=== PATIENT | male | born 1960 | race Caucasian/White ===

== ENCOUNTER → 2019-12-04 11:05 | Outpatient (BNVA) | payer BC, SELFPAY | PROVIDERS: Family Provider Nurse Practitioner; Visit Provider Nurse Practitioner Family | DX: E78.5 Hyperlipidemia, unspecified (principal); J30.89 Other allergic rhinitis; F41.9 Anxiety disorder, unspecified; N52.9 Male erectile dysfunction, unspecified; K21.9 Gastro-esophageal reflux disease without esophagitis; M51.36 Other intervertebral disc degeneration, lumbar region; Z12.5 Encounter for screening for malignant neoplasm of prostate | CPT/HCPCS: 80053; 80061; 84443; 85025; G0103 ==

== ENCOUNTER → 2020-05-12 12:41 | Outpatient (BNVA) | payer BC, SELFPAY | PROVIDERS: Family Provider Nurse Practitioner; Visit Provider Nurse Practitioner | DX: Z12.5 Encounter for screening for malignant neoplasm of prostate (principal) | CPT/HCPCS: G0103 ==

== ENCOUNTER 2022-02-08 11:50 | Emergency (ER) | payer OTHER, SELFPAY ==
[2022-02-08 11:54] VITALS: BP 124/80; PULSE 109; RESP 18; TEMP 37.1; O2SAT 97
--- NOTE | 2022-02-08 12:59 | ECG_ITS ---
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 Measurements Intervals [place] Rate: 73 P: 48 IA: 140 QRS: 65 QRSD: 80 T: 57 QT: 363 QTc: 401 Interpretive Statements SINUS RHYTHM No previous ECG available for comparison Electronically Signed On 02-08-2022 22:15:16 CDT by Beth Tello M.D. [id number]
--- NOTE | 2022-02-08 12:59 | XRR_ITS ---
PROCEDURE INFORMATION: Exam: XR Chest Exam date and time: 02/08/2022 1:10 PM Age: 61 years old Clinical indication: Other: Syncope TECHNIQUE: Imaging protocol: Radiologic exam of the chest. Views: 1 view. COMPARISON: CT neck w con* [id number] 06/08/2015 8:39 AM FINDINGS: Lungs: Unremarkable. No consolidation. Pleural spaces: Unremarkable. No pleural effusion. No pneumothorax. Heart/Mediastinum: Stable cardiomediastinal silhouette. Bones/joints: Degenerative changes of the spine seen. XR/XR chest 1V portable [id number] IMPRESSION: No acute findings.
--- NOTE | 2022-02-08 12:59 | W.ED.GENADLT ---
HPI - General Adult General: Chief complaint: General Medical Stated complaint: AMS Time Seen by Provider: 02/08/22 12:30 Source: patient and family () Mode of arrival: EMS Limitations: no limitations History of Present Illness: Patient is a nice 61-year-old male who presents to ED today along with his for evaluation following a passing out episode. Patient tells me he drove himself to [employer] and had ordered food and was awaiting his order to be delivered. He states the next thing he knows EMS was at his window/door trying to arouse him.He reportedly was very confused when he woke up but states this quickly subsided. Patient upon arrival to the emergency department is alert and oriented x4. His is currently accompanying him and states he is at his mental baseline.He has no neurologic complaints. No headache. He does not complain of any chest pain, shortness of breath, difficulty breathing. He does state he feels a little generally weak. states they recently got back from a weeklong vacation in [place] and thinks he might just be tired/fatigued. Onset (ago): hour(s) Associated symptoms: Reports confusion (resolved upon arrival to ED); Deny chest pain, dyspnea, headache(s), malaise, nausea, rash, palpitations, syncope or vomiting Treatments prior to arrival: none Review of Systems Const: Denies: fever(s), chills, body aches, change in appetite, change in weight, fatigue or malaise Eyes: Denies: change in vision, blurry vision, photophobia, floaters or seeing flashes Card: Denies: chest pain, palpitations, irregular heart rhythm, edema, swelling of feet/ankles, lightheadedness, syncope, pre-syncope, dyspnea on exertion, orthopnea, leg pain with exertion or acrocyanosis Resp: Denies: dyspnea, productive cough, wheezing, hemoptysis or chest congestion GI: Denies: abdominal pain, nausea, vomiting or diarrhea : Denies: flank pain, dysuria or hematuria Musc: Denies: neck pain, back pain, extremity pain or joint pain Skin/Breast: Denies: rash Neuro: Reports: confusion (resolved upon arrival to ED); Denies: headache(s), numbness in extremities, weakness in extremities, sensory changes, lack of coordination, difficulty walking, frequent falls, dizziness, vertigo, behavioral changes, Slurred speech present, difficulty communicating thoughts or seizure-like activity PFSH ED PFSH: Medical History Anxiety Chronic GERD DDD (degenerative disc disease), lumbar Dyslipidemia Environmental and seasonal allergies Erectile dysfunction Surgical History History of cholecystectomy History of lithotripsy 2007, ESWL 07/27/2014: 8 mm left UPJ stone cluster History of total right hip replacement March 01, 2020 Dr. Baird Family History Other Cancer Diabetes Hypertension Social History Smoking and tobacco status: current every day smoker Second hand smoke exposure: No Smoking risk assessment/counseling performed?: No Alcohol intake: never Desire information about alcohol rehabilitation?: No Counseling given: No Desire information about substance/drug rehabilitation?: No Counseling given: No Adopted: No Caregiver/support person: No Lives independently: Yes Household members: family Housing: House Marital status: Single Number of children: 4 service: No Current occupational status: employed History of recent travel: No Current gender identity: Male Physical Exam Const: COMMON NORMALS: no acute distress, average body habitus, patient oriented x3, no limitations, healthy appearing, alert and well nourished GENERAL APPEARANCE: cooperative ORIENTATION/CONSCIOUSNESS: Yes awake, Yes oriented to person, Yes oriented to place and Yes oriented to time HENMT: COMMON NORMALS: normocephalic and atraumatic HEAD & SCALP: normal to inspection, normocephalic and atraumatic Eye: GENERAL EYE: appearance normal, both eyes and all related structures and normal light reflex DIRECT OPHTHALMOSCOPY: Yes normal light reflex Neck/C-Spine: COMMON NORMALS: full ROM, no lymphadenopathy and no meningeal signs Resp: COMMON NORMALS: normal respiratory effort and clear to auscultation bilaterally AUSCULTATION: clear to auscultation bilaterally Cardio: COMMON NORMALS: regular rate and regular rhythm RATE: regular rate RHYTHM: regular rhythm Extremity: COMMON NORMALS: normal to inspection GENERAL: Yes normal exam except as noted Neuro: JEF COMA SCALE: document GCS findings [place] coma scale eye opening: Spontaneous Jef coma scale verbal response: Orientated Jef coma scale motor response: Obey commands Jef coma scale total score: 15 COMMON NORMALS: patient oriented x3, CN's II-XII intact bilaterally, moves all extremities, no focal motor deficits, no sensory deficits noted and gait normal SENSORIUM/ORIENTATION: Yes alert, Yes oriented to person, Yes oriented to place and Yes oriented to time MENINGEAL SIGNS: Yes no meningeal signs MOTOR EXAM: 5/5 motor strength present throughout Skin: COMMON NORMALS: no rashes or lesions noted GENERAL SKIN EXAM: no rashes or lesions noted Course Vital Signs: Vital signs: Vital Signs Temperature 98.7 F 02/08/22 11:54 Pulse Rate 79 02/08/22 13:30 Respiratory Rate 16 02/08/22 13:30 Blood Pressure 130/78 02/08/22 13:30 Pulse Oximetry 99 02/08/22 13:30 MDM - General Adult Medical Decision Making Patient clinically appears in no acute distress. His vital signs are normal. He is alert and oriented with no neurologic deficits or complaints during my assessment. His work-up here is unremarkable-maybe some mild dehydration. His EKG is normal. CXR normal. He has no complaints apart from feeling a little weak-no focal weakness. At this time patient would like to go home. states they will follow-up with her PCP Dr. Lennon soon for re-evaluation. Return to ED precautions given regarding any new or concerning symptoms or recurrent episodes. Lab Data : 02/08/22 12:00 02/08/22 12:00 Radiology Impressions Chest X-Ray 02/08/22 12:59 IMPRESSION: No acute findings. Laboratory Results WBC 6.2 10^3/uL (4.0-10.0) 02/08/22 12:00 RBC 5.52 10^6/uL (4.1-5.3) H 02/08/22 12:00 Hgb 17.1 g/dL (11.7-16.6) H 02/08/22 12:00 Hct 49.1 % (42.0-52.0) 02/08/22 12:00 MCV 88.9 fl (80-94) 02/08/22 12:00 MCH 31.0 pg (28.0-34.0) 02/08/22 12:00 MCHC 34.8 g/dL (30.0-36.0) 02/08/22 12:00 RDW 12.4 % (12.1-15.1) 02/08/22 12:00 Plt Count 281 10^3/cmm (130-400) 02/08/22 12:00 MPV 10.0 fL (7.4-10.4) 02/08/22 12:00 Neut % (Auto) 47.6 % 02/08/22 12:00 Lymph % (Auto) 35.2 % 02/08/22 12:00 Dane % (Auto) 10.3 % 02/08/22 12:00 Eos % (Auto) 5.8 % 02/08/22 12:00 Baso % (Auto) 0.8 % 02/08/22 12:00 Neut # (Auto) 2.95 10^3/uL (1.8-7.7) 02/08/22 12:00 Lymph # (Auto) 2.2 10^3/uL (0.8-4.8) 02/08/22 12:00 Dane # (Auto) 0.6 10^3/uL (0.2-0.9) 02/08/22 12:00 Eos # (Auto) 0.4 10^3/uL (0.0-0.8) 02/08/22 12:00 Baso # (Auto) 0.1 10^3/uL (0.0-0.1) 02/08/22 12:00 Nucleated RBC % (auto) 0 % 02/08/22 12:00 Nucleated RBCs # 0.0 /100WBC 02/08/22 12:00 Sodium 138 mmol/L (136-145) 02/08/22 12:00 Potassium 3.6 mmol/L (3.5-5.1) 02/08/22 12:00 Chloride 101 mmol/L (98-107) 02/08/22 12:00 Carbon Dioxide 17 mmol/L (22-29) L 02/08/22 12:00 Anion Gap 23.6 (5-19) H 02/08/22 12:00 BUN 15 mg/dL (8-23) 02/08/22 12:00 Creatinine 1.0 mg/dL (0.7-1.2) 02/08/22 12:00 GFR Calculation 76.0 mL/min (90-130) L 02/08/22 12:00 Glucose 123 mg/dL (65-115) H 02/08/22 12:00 Calculated Osmolality 288 mOsm/kg (285-295) 02/08/22 12:00 Calcium 9.3 mg/dL (8.5-10.5) 02/08/22 12:00 Total Bilirubin 1.3 mg/dL (0.15-1.2) H 02/08/22 12:00 AST 28 U/L (0-40) 02/08/22 12:00 ALT 31 U/L (0-41) 02/08/22 12:00 Alkaline Phosphatase 90 IU/L (40-130) 02/08/22 12:00 Troponin T Baseline 9 ng/L (0-15) 02/08/22 12:00 Total Protein 7.2 g/dL (6.6-8.7) 02/08/22 12:00 Albumin 4.6 g/dL (3.5-5.2) 02/08/22 12:00 Globulin 2.6 g/dL (1.3-4.6) 02/08/22 12:00 Urine Color Yellow (Yellow) 02/08/22 12:40 Urine Appearance Clear (CLEAR) 02/08/22 12:40 Urine pH 5 (5-7) 02/08/22 12:40 Ur Specific [place] 1.025 (1.005-1.030) 02/08/22 12:40 Urine Protein Neg (Negative) 02/08/22 12:40 Urine Glucose (UA) Norm (Normal) 02/08/22 12:40 Urine Ketones 1+ (Negative) H 02/08/22 12:40 Urine Blood Neg (Negative) 02/08/22 12:40 Urine Nitrate Negative (Negative) 02/08/22 12:40 Urine Bilirubin Neg (Negative) 02/08/22 12:40 Urine Urobilinogen Norm mg/dL (Negative) 02/08/22 12:40 Ur Leukocyte Esterase Negative (Negative) 02/08/22 12:40 Amorphous Sediment Not Reportable 02/08/22 12:40 Discharge Plan Discharge Patient Disposition: Home Clinical Impression: Passed out Condition: Stable Prescriptions: No Action aspirin 325 mg tablet 325 mg PO DAILY 0RF atorvastatin 10 mg tablet 10 mg PO DAILY 90 Days Qty: 90 1RF celecoxib [Celebrex] 200 mg capsule 200 mg PO DAILY 90 Days Qty: 90 1RF fluticasone propionate [Allergy Relief (fluticasone)] 50 mcg/actuation spray,suspension 2 spray INTRANASAL DAILY 90 Days Qty: 3 1RF omeprazole 20 mg capsule,delayed release(DR/EC) 20 mg PO DAILY 90 Days Qty: 90 1RF sildenafil [Viagra] 100 mg tablet 100 mg PO DAILY Qty: 30 5RF Rx Instructions: 340B, do not take with nitro Discharge Orders: Discharge ED (Routine); Ordered 02/08/22 Ordered By: Yvette Manzo Referrals: Gillian Quezada, PHYSICIAN INTERVENTIONAL CARDIOLOGIST-C [Primary Care Provider] - Coding Level of Care Code ED Publication Director for Gita Acharya
[2022-02-08 13:09] LABS: Basophils # 0.1 10^3/uL (0.0-0.1); Basophils % 0.8 %; Eosinophils # 0.4 10^3/uL (0.0-0.8); Eosinophils % 5.8 %; Hematocrit 49.1 % (42.0-52.0); Hemoglobin 17.1 g/dL (11.7-16.6); Lymphocytes # 2.2 10^3/uL (0.8-4.8); Lymphocytes % 35.2 %; Mean Corpuscular HGB Conc 34.8 g/dL (30.0-36.0); Mean Corpuscular Volume 88.9 fl (80-94); Monocytes # 0.6 10^3/uL (0.2-0.9); Monocytes % 10.3 %; Neutrophils # 2.95 10^3/uL (1.8-7.7); Neutrophils % 47.6 %; Nucleated Red Blood Cells % 0 %; Platelet Count 281 10^3/cmm (130-400); Red Blood Count 5.52 10^6/uL (4.1-5.3); Red Cell Distribution Width 12.4 % (12.1-15.1); White Blood Count 6.2 10^3/uL (4.0-10.0)
[2022-02-08 13:13] LABS: Add Urine Microscopic? YES; Bilirubin Urine Neg (Negative); Blood Urine Neg (Negative); Glucose Urine UA Norm (Normal); Ketones Urine 1+ (Negative); Leukocyte Esterase Urine Negative (Negative); Nitrate Urine Negative (Negative); Protein Urine Neg (Negative); Specific Gravity, Urine 1.025 (1.005-1.030); Urine Appearance Clear (CLEAR); Urine Color Yellow (Yellow); Urobilinogen Urine Norm (Negative); pH Urine 5 (5-7)
[2022-02-08] MEDS: sodium chloride 0.9% 1,000 ML 999 ML IV (13:18)
[2022-02-08 13:30] VITALS: BP 130/78; PULSE 79; RESP 16; O2SAT 99
[2022-02-08 13:33] LABS: Alanine Aminotransferase 31 U/L (0-41); Albumin Level 4.6 g/dL (3.5-5.2); Alkaline Phosphatase 90 IU/L (40-130); Anion Gap 23.6 (5-19); Aspartate Amino Transferase 28 U/L (0-40); Blood Urea Nitrogen 15 mg/dL (8-23); Calcium 9.3 mg/dL (8.5-10.5); Carbon Dioxide 17 mmol/L (22-29); Chloride 101 mmol/L (98-107); Globulin 2.6 g/dL (1.3-4.6); Glucose 123 mg/dL (65-115); Osmolality Calculated 288 mOsm/kg (285-295); Potassium 3.6 mmol/L (3.5-5.1); Sodium 138 mmol/L (136-145); Total Bilirubin 1.3 mg/dL (0.15-1.2); Total Protein 7.2 g/dL (6.6-8.7)
[2022-02-08 13:35] LABS: Troponin(5th) Baseline 9 ng/L (0-15)
[2022-02-08 14:20] VITALS: BP 125/70; PULSE 81; RESP 16; O2SAT 99
[2022-02-08 15:01] LABS: RBC Urine 0-4 /hpf (0-2); WBC Urine 0-4 /hpf (0-5)
[2022-02-08 15:09] LABS: Squamous Epithelial Cell Urine 0-4 /hpf (0-5)
== END 2022-02-08 14:21 | disposition home or self-care (01) ==
PROVIDERS: Emergency Provider Physician Assistant; PCP Nurse Practitioner
DX: R55 Syncope and collapse (principal); E86.0 Dehydration
CPT/HCPCS: 71045; 80053; 81001; 84484; 85025; 93005; 99283; J7030

== ENCOUNTER 2022-04-06 16:29 | Emergency (ER) | payer OTHER, SELFPAY ==
[2022-04-06 16:32] VITALS: BP 132/63; PULSE 113; RESP 18; O2SAT 94; BMI 25.7
--- NOTE | 2022-04-06 16:33 | CTR_ITS ---
PROCEDURE INFORMATION: Exam: CT Head Without Contrast Exam date and time: 04/06/2022 4:52 PM Age: 61 years old Clinical indication: Stroke-like symptoms; Syncope/collapse; Paul lower extremity weakness; Additional info: Seizure TECHNIQUE: Imaging protocol: Computed tomography of the head without contrast. Radiation optimization: All CT scans at this facility use at least one of these dose optimization techniques: automated exposure control; mA and/or kV adjustment per patient size (includes targeted exams where dose is matched to clinical indication); or iterative reconstruction. Other technique: STROKE PROTOCOL was implemented. COMPARISON: CT neck w con* [id number] 06/08/2015 8:39 AM RADIATION DOSE METRICS: Total DLP (mGy-cm): 1672.98 FINDINGS: Brain: There is no evidence of infarct, boston-white matter differentiation is preserved. There is no hemorrhage or extra-axial collection. There is no mass. Cerebral ventricles: There is no hydrocephalus. Paranasal sinuses: Visualized sinuses are unremarkable. No fluid levels. Mastoid air cells: Visualized mastoid air cells are well aerated. Bones/joints: Unremarkable. No acute fracture. Soft tissues: Unremarkable. CT/CT head wo con* [id number] IMPRESSION: No intracranial lesion or injury ASSESSMENT: ASPECTS ([place] Stroke Program Early CT Score) is 10.
--- NOTE | 2022-04-06 16:33 | ECG_ITS ---
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 Measurements Intervals [place] Rate: 109 P: 69 TN: 143 QRS: 68 QRSD: 82 T: 67 QT: 325 QTc: 439 Interpretive Statements SINUS TACHYCARDIA SEPTAL MYOCARDIAL INFARCTION , PROBABLY OLD [40+ ms Q WAVE IN V1/V2] Compared to ECG 02/08/2022 13:11:11 Myocardial infarct finding now present Sinus rhythm no longer present Electronically Signed On 04-06-2022 19:06:48 CDT by Beth Tello M.D. [id number] f
--- NOTE | 2022-04-06 16:39 | W.ED.SEIZURE ---
HPI - Seizure General: Chief Complaint: Seizure Stated Complaint: SEIZURE Time Seen by Provider: 04/06/22 16:30 Source: patient and EMS Mode of arrival: EMS Limitations: no limitations History of Present Illness: HPI Narrative: 61-year-old male who states that he was [place] the bank just prior to [place] and had a witnessed seizure. Patient was found by EMS postictal he is now awake and alert he states he feels fine he has no complaints this time he has had a seizure history but states he had not had any for 20 years but have 1 3 weeks ago at [facility]. He denies any vomiting or diarrhea he states he feels back to his baseline currently EMS states he was postictal. Associated symptoms: Deny chest pain, chills or fever(s) Review of Systems Const: Denies: fever(s), chills, body aches or change in appetite Eyes: Denies: blurry vision or eye discomfort ENMT: Denies: throat pain or dental pain Card: Denies: chest pain Resp: Denies: dyspnea GI: Denies: abdominal pain, nausea, vomiting or diarrhea : Denies: dysuria Musc: Denies: neck pain or back pain Skin/Breast: Denies: rash Neuro: Reports: seizure-like activity Psych: Denies: depression Angel/Lymph: Denies: easy bruising All/Imm: Denies: urticaria PFSH ED PFSH: Medical History (Updated 04/06/22 @ 17:05 by Rebeca Haider MD) Anxiety Chronic GERD DDD (degenerative disc disease), lumbar Dyslipidemia Environmental and seasonal allergies Erectile dysfunction Surgical History History of cholecystectomy History of lithotripsy 2007, ESWL 07/27/2014: 8 mm left UPJ stone cluster History of total right hip replacement March 01, 2020 Dr. Baird Family History Other Cancer Diabetes Hypertension Social History Smoking and tobacco status: current every day smoker Second hand smoke exposure: No Smoking risk assessment/counseling performed?: No Alcohol intake: never Desire information about alcohol rehabilitation?: No Counseling given: No Desire information about substance/drug rehabilitation?: No Counseling given: No Adopted: No Caregiver/support person: No Lives independently: Yes Household members: family Housing: House Marital status: Single Number of children: 4 service: No Current occupational status: employed History of recent travel: No Current gender identity: Male Physical Exam Const: COMMON NORMALS: no acute distress, patient oriented x3 and healthy appearing HENMT: COMMON NORMALS: normocephalic and atraumatic HEAD & SCALP: normocephalic and atraumatic Eye: COMMON NORMALS: Equal, round and reactive pupils present and EOMs intact bilaterally PUPIL: Yes Equal, round and reactive pupils present Neck/C-Spine: COMMON NORMALS: full ROM and supple Chest: COMMONS NORMALS: normal inspection of the chest and normal palpation of entire chest wall Resp: COMMON NORMALS: normal respiratory effort, No retractions, No use of accessory muscles and clear to auscultation bilaterally AUSCULTATION: clear to auscultation bilaterally Cardio: COMMON NORMALS: regular rate, regular rhythm and No murmurs present (Cardio) RATE: regular rate RHYTHM: regular rhythm GI: COMMON NORMALS: Normal to inspection, nondistended, normoactive bowel sounds present, Soft to palpation, non-tender and no masses PALPATION: Yes Soft to palpation Extremity: COMMON NORMALS: normal to inspection and full ROM Neuro: COMMON NORMALS: patient oriented x3, moves all extremities and no focal motor deficits Psych: COMMON NORMALS: mental status grossly normal, Normal thought process present and cooperative THOUGHT PROCESS: Normal thought process present Skin: COMMON NORMALS: no rashes or lesions noted and no wounds GENERAL SKIN EXAM: no rashes or lesions noted Course Vital Signs: Vital signs: Vital Signs Pulse Rate 113 H 04/06/22 16:32 Respiratory Rate 18 04/06/22 16:32 Blood Pressure 132/63 04/06/22 16:32 Pulse Oximetry 94 04/06/22 16:32 Oxygen Delivery Me thod 04/06/22 16:32 MDM - Seizure MDM Narrative Medical decision making narrative: Patient presents here with seizure second 1 in the last month he is well-appearing here states he does take a lot of caffeine and caffeine pills I did recommend decreasing that we will start him on Keppra and get him follow-up with neurology he is to return if worsening he understands agrees to plan. Lab Data Labs: Radiology Impressions Head CT 08/11/22 16:33 IMPRESSION: No intracranial lesion or injury ASSESSMENT: ASPECTS ([place] Stroke Program Early CT Score) is 10. EKG Data EKG 1: Attestation: I personally reviewed and interpreted this EKG as follows: EKG interpretation date: 04/06/22 EKG interpretation time: 16:43 Interpretation: sinus tach hr [address] or t wave abnormalities qrs 82 qtc 389 Discharge Plan Discharge Patient Disposition: Home Clinical Impression: Generalized seizure Condition: Stable Prescriptions: New Keppra 500 mg tablet 500 mg PO BID Qty: 60 0RF No Action aspirin 325 mg tablet 325 mg PO DAILY atorvastatin 10 mg tablet 10 mg PO DAILY 90 Days Qty: 90 1RF celecoxib [Celebrex] 200 mg capsule 200 mg PO DAILY 90 Days Qty: 90 1RF fluticasone propionate [Allergy Relief (fluticasone)] 50 mcg/actuation spray,suspension 2 spray INTRANASAL DAILY 90 Days Qty: 3 1RF omeprazole 20 mg capsule,delayed release(DR/EC) 20 mg PO DAILY 90 Days Qty: 90 1RF sildenafil [Viagra] 100 mg tablet 100 mg PO DAILY Qty: 30 5RF Rx Instructions: 340B, do not take with nitro Discharge Orders: Discharge ED (Routine); Ordered 04/06/22 Ordered By: Rebeca Haider Referrals: Gillian Quezada, SEPTIC CLEANER-C [Primary Care Provider] - Discharge Diet: Advance as tolerated Discharge Activity: Resume usual activity Patient Instructions: Seizures Coding Level of Care Code ED Gambling Floor Supervisor for Chg Fwd Exam Comprehensive
--- NOTE | 2022-04-06 17:29 | PC.NURSE ---
DR. MOODY BACK IN ROOM SPEAKING WITH PT AND FAMILY.
[2022-04-06 18:00] VITALS: BP 104/73; PULSE 87; RESP 16; O2SAT 99
--- NOTE | 2022-04-07 07:40 | DCPLANNER ---
Addendum entered by Shakila Chan 05/11/22 14:58: appointment was cancelled Addendum entered by Shakila Chan 04/07/22 15:19: Patient has a follow up appointment scheduled for Monday, May 02, 2022 at 10:[address] Serra. Clinic will call patient with appointment information. Original Note: business process manager had message to schedule a follow up appointment for patient with neurology. business process manager sent patients information to the front office staff at neurology. Patients information will be printed and reviewed. Clinic will call patient with appointment information.
== END 2022-04-06 18:04 | disposition home or self-care (01) ==
PROVIDERS: Emergency Provider Emergency Medicine; PCP Nurse Practitioner
DX: G40.89 Other seizures (principal); E78.5 Hyperlipidemia, unspecified; F17.210 Nicotine dependence, cigarettes, uncomplicated; Z79.82 Long term (current) use of aspirin
CPT/HCPCS: 70450; 93005; 99284

== ENCOUNTER 2023-02-13 12:02 | Outpatient (CLI) | payer OTHER, SELFPAY ==
--- NOTE | 2023-02-13 12:14 | USCV_ITS ---
Sincere Ribera Age: 62 Gender: M : 1960 Exam Date: 02/13/2023 12:29 Ordering Phys: Adrian Lennon DO Technologist: Exam Location: [facility]_ Indication: leg pain RIGHT LEFT Brachial 124.00 mmHg Brachial 131.00 mmHg Pressure (mmHg) Waveform Pressure (mmHg) Waveform 175.00 BOREMATIC OPERATOR 161.00 140.00 DPA 129.00 1.34 Ankle/Brachial Index 1.23 143.00 Pre-Exercise Toe Pressure 137.00 1.09 Pre-Exercise Toe/Brachial Index 1.05 FINDINGS Resting YUSEF of 1.34 on the right and 1. 2 3 on the left Resting TBI of 1.09 on the right and 1.05 on the left CONCLUSIONS Normal resting ABIs and TBIs bilaterally. No evidence of any significant arterial obstruction, based on the above findings. Dr Chay Umana MD [facility] (Electronically Signed) Final Date: 20 February 2023 09:38 S
== END 2023-02-13 12:03 | disposition home or self-care (01) ==
PROVIDERS: PCP Electrodiagnostic Medicine; Visit Provider Electrodiagnostic Medicine
DX: I73.9 Peripheral vascular disease, unspecified (principal); M79.605 Pain in left leg; M79.604 Pain in right leg
CPT/HCPCS: 93922